=== PATIENT | female | born 2000 | race Caucasian/White ===

== ENCOUNTER 2021-11-27 10:10 | Emergency (ER) | payer OTHER, SELFPAY ==
--- NOTE | 2021-11-27 10:16 | ED.FEMALEGU ---
HPI - Female Genitourinary General Chief complaint: Urogenital-Female Stated complaint: Poss uti Time Seen by Provider: 11/27/21 10:17 Source: patient and RN notes reviewed History of Present Illness HPI Narrative: Patient is a 21-year-old female who presents the urgent care with complaints of urgency, frequency and burning with urination since yesterday. Patient states she then woke up this morning with blood in the urine. Patient states she was treated for UTI last month with Macrobid. Patient denies of any fever, chills, nausea, vomiting. States that she has lower abdominal pressure. Patient took Azo last night. No other acute complaints. No acute distress noted. Patient aware of the plan of care. Some parts of this dictation were generated by voice recognition software and may contain typographical and/or grammatical inaccuracies. Related Data Home Medications Medication Instructions Recorded Confirmed norgestimate-ethinyl estradiol 1 tablet PO DAILY 11/27/21 11/27/21 [Sprintec (28)] Allergies Allergy/AdvReac Type Severity Reaction Status Date / Time No Known Allergies Allergy Unverified 11/27/21 10:26 Review of Systems Review of Systems: CONSTITUTIONAL: Denies fever, chills, or sweats. EYES: Denies visual changes, redness, or discharge. ENT: Denies rhinorrhea, congestion, sore throat, or otalgia. CARDIOVASCULAR: Denies chest pain, palpitations, or edema. RESPIRATORY: Denies cough or dyspnea. GASTROINTESTINAL: Denies abdominal pain, nausea, vomiting, or diarrhea. GENITOURINARY: Reports of urgency, frequency and dysuria with hematuria SKIN: Denies rash or itching. MUSCULOSKELETAL: Denies back pain, joint pain, or myalgia. NEUROLOGIC: Denies headache, numbness, or weakness. All other systems reviewed are negative, except as documented in HPI. PMFSH Comments At the time of my signature, I reviewed and agree with the nursing past medical, surgical, social, and family history. There is no relevant family history pertinent to the patient complaint. Exam Narrative: GENERAL: This is a well-nourished, well-developed patient, in no apparent distress. HEAD: normocephalic, atraumatic. EYES: PERRL. Sclera clear/white. Vision is grossly intact. EARS: External ears normal NOSE: External nose normal with no obvious nasal discharge, nares without redness, no rhinorrhea. THROAT: Mucous membranes moist NECK: Neck supple CARDIOVASCULAR: Regular rate and rhythm without murmurs, gallops, or rubs. RESPIRATORY: Clear to auscultation. Breath sounds equal bilaterally. No wheezes, rales, or rhonchi. GASTRO: Mild suprapubic tenderness SKIN: warm, intact with no suspicious lesions or rash, good texture and turgor. NEURO: awake, alert, and oriented to person, place and time. There were no obvious focal neurologic abnormalities. EXTREMITIES: No clubbing, cyanosis, or edema. BACK: N negative CVA tenderness Course Course Level of Care: Express Care Visit Vital Signs Vital signs: Vital Signs Temperature 98.8 F 11/27/21 10:20 Pulse Rate 89 11/27/21 10:20 Respiratory Rate 18 11/27/21 10:20 Blood Pressure 114/71 11/27/21 10:20 Pulse Oximetry 99 11/27/21 10:20 Temperature 98.8 F 11/27/21 10:27 Pulse Rate 89 11/27/21 10:27 Respiratory Rate 18 11/27/21 10:27 Blood Pressure 114/71 11/27/21 10:27 Pulse Oximetry 99 11/27/21 10:27 Reviewed MDM - Female Genitourinary MDM Narrative Medical decision making narrative: Reviewed lab results with the patient. She is aware that urine analysis is indicative of a urinary tract infection. Advised her to complete the oral antibiotic regimen as prescribed. We will culture the urine and call if medication changes necessary, based on culture results. Make sure to eat and drink with the medication. Take the one-time Diflucan after the antibiotic regimen is complete. Wear cotton underwear and avoid tight clothing. Do not soak in bath water. Increase your jessie
[2021-11-27 10:20] VITALS: BP 114/71; PULSE 89; RESP 18; TEMP 37.1; O2SAT 99
[2021-11-27 10:27] VITALS: BP 114/71; PULSE 89; RESP 18; TEMP 37.1; O2SAT 99
== END 2021-11-27 10:45 | disposition home or self-care (01) ==
PROVIDERS: Emergency Provider Nurse Practitioner Family; PCP Family Medicine
DX: N39.0 Urinary tract infection, site not specified (principal)
CPT/HCPCS: 81003; 87086; 99203; G0463